=== PATIENT | male | born 1985 | race African-American/Black ===

== ENCOUNTER 2019-10-09 09:06 | Emergency (ER) | payer SELFPAY ==
--- NOTE | 2019-10-09 11:08 | ER ---
Nurse's Notes [facility] Name: Brett Red IV Age: 34 yrs Sex: Male : 1985 Arrival Date: 10/09/2019 Time: 09:10 Bed 19 Private MD: Diagnosis: Sprain of foot-left;Sprain of ankle-left Presentation: 10/08 09:19 Chief complaint: Rolled left ankle while playing basketball 3 days ago, c/o left foot hb and ankle pain 08/24. Coronavirus screen: At this time, the client does not indicate any symptoms associated with coronavirus-19. Ebola Screen: No symptoms or risks identified at this time. Initial Sepsis Screen: Does the patient meet any 2 criteria? No. Patient's initial sepsis screen is negative. Does the patient have a suspected source of infection? No. Patient's initial sepsis screen is negative. Risk Assessment: Do you want to hurt yourself or someone else? Patient reports no desire to harm self or others. Onset of symptoms was October 06, 2019. 09:19 Method Of Arrival: Ambulatory hb 09:19 Acuity: ZELDA 4 hb Historical: - Allergies: 09:21 Sulfa (Sulfonamide Antibiotics); hb - Home Meds: 09:20 None [Active]; hb - PMHx: 09:20 None; hb - PSHx: 09:20 lt knee surgery torn acl; hb - Immunization history:: Adult Immunizations up to date. - Social history:: Smoking status: Patient denies any tobacco usage or history of. Screenin:44 Abuse screen: Denies threats or abuse. Denies injuries from another. Nutritional jr10 screening: No deficits noted. Tuberculosis screening: No symptoms or risk factors identified. Fall Risk None identified. Assessment: 09:42 General: Appears in no apparent distress. Behavior is calm, cooperative, appropriate jr10 for age. Pain: Complains of pain in lateral side of left foot and dorsum of left foot. Cardiovascular: Pulses are palpable in right dorsalis pedis artery and left dorsalis pedis artery. Musculoskeletal: Circulation, motion, and sensation intact. Capillary refill < 3 seconds, Range of motion: intact in all extremities, Swelling present in dorsum of left foot Tenderness is absent. Injury Description: pt states that he rolled his ankle when playing basketball 3 days ago "I just need a work excuse to go back to work, I know it ain't broken". Vital Signs: 09:19 BP 126 / 94; Pulse 63; Resp 16; Temp 97.9; Pulse Ox 100% on R/A; Weight 87.09 kg; hb Height 5 ft. 10 in. (177.80 cm); Pain 7/10; 11:20 BP 135 / 84; Pulse 62; Resp 18; Pulse Ox 98% on R/A; Pain 0/10; jr10 09:19 Body Mass Index 27.55 (87.09 kg, 177.80 cm) hb ED Course: 09:10 Patient arrived in ED. mr 09:20 Triage completed. hb 09:20 Arm band placed on. hb 09:22 Pedro Pablo Burciaga PA is PHCP. cp 09:22 Michael Jacobs MD is Attending Physician. cp 09:33 Lisa Moya, RN is Primary Nurse. jr10 09:44 Patient has correct armband on for positive identification. Call light in reach. jr10 Cardiac monitoring not applicable on this patient. 09:44 No provider procedures requiring assistance completed. Patient did not have IV access jr10 during this emergency room visit. 10:59 XRAY Ankle LEFT 3 view In Process Unspecified. EDMS 10:59 XRAY Foot LEFT 3 View In Process Unspecified. EDMS 11:06 Volodymyr Petersen MD is Referral Physician. cp 11:20 Air stirrup applied to left ankle. jr10 Administered Medications: No medications were administered Outcome: 11:08 Discharge ordered by MD. cp 11:20 Discharged to home ambulatory. jr10 11:20 Condition: good 11:20 Discharge instructions given to patient, Instructed on discharge instructions, follow up and referral plans. Demonstrated understanding of instructions, follow-up care, medications, Prescriptions given X 1. 11:21 Patient left the ED. jr10 Signatures: Dispatcher [employer] EDNJ Tosha Moya mr Pedro Pablo Burciaga PA PA cp Baxter, Heather, TIM RN Lisa Moya, TIM RN jr10 Corrections: (The following items were deleted from the chart) 09:21 09:20 Allergies: No Known Allergies; hb hb
--- NOTE | 2019-10-09 11:09 | EDPHYS ---
Physician Documentation [facility] Name: Brett Red IV Age: 34 yrs Sex: Male : 1985 Arrival Date: 10/09/2019 Time: 09:10 Bed 19 Private MD: ED Physician Michael Jacobs HPI: 10/08 09:26 This 34 yrs old Black Male presents to ER via Ambulatory with complaints of Ankle cp Injury. 09:28 The patient presents with an injury, pain, that is acute. The complaints affect the cp anterior aspect of left ankle and dorsum of left foot. Context: resulted from playing sports, basketball, the patient can fully bear weight, the patient is able to ambulate, with mild difficulty. Onset: The symptoms/episode began/occurred 3 day(s) ago. Associated signs and symptoms: Pertinent negatives calf tenderness, numbness, tingling. Treatment prior to arrival includes: no previous treatment. Historical: - Allergies: 09:21 Sulfa (Sulfonamide Antibiotics); hb - Home Meds: 09:20 None [Active]; hb - PMHx: 09:20 None; hb - PSHx: 09:20 lt knee surgery torn acl; hb - Immunization history:: Adult Immunizations up to date. - Social history:: Smoking status: Patient denies any tobacco usage or history of. ROS: 09:29 MS/extremity: Positive for pain, tenderness, of the dorsum of left foot and anterior cp aspect of left ankle, Negative for decreased range of motion, deformity. 09:29 Neuro: Negative for numbness, tingling. 09:29 All other systems are negative. Exam: 09:30 Constitutional: The patient appears in no acute distress, alert, awake, well developed, cp well nourished. 09:30 Musculoskeletal/extremity: Extremities: grossly normal except: noted in the dorsum of left foot: swelling, tenderness, tenderness to palpation noted lateral malleolus, Perfusion: the extremity is normally perfused throughout, Sensation intact. Achilles tendon intact. Vital Signs: 09:19 BP 126 / 94; Pulse 63; Resp 16; Temp 97.9; Pulse Ox 100% on R/A; Weight 87.09 kg; hb Height 5 ft. 10 in. (177.80 cm); Pain 7/10; 11:20 BP 135 / 84; Pulse 62; Resp 18; Pulse Ox 98% on R/A; Pain 0/10; jr10 09:19 Body Mass Index 27.55 (87.09 kg, 177.80 cm) hb Procedures: 11:15 Splinting: Splint applied to left ankle using Air Cast, applied by nurse. Examined by cp me, post splint application: neurovascular intact, Patient tolerated well. MDM: 09:23 Patient medically screened. cp 11:05 Data reviewed: vital signs, nurses notes, radiologic studies, plain films. Test cp interpretation: by ED physician or midlevel provider: xrays of left ankle negative for fracture and xrays of left foot negative for fracture. 10/08 09:27 Order name: XRAY Ankle LEFT 3 view cp 10/08 09:27 Order name: XRAY Foot LEFT 3 View cp 10/08 11:02 Order name: Splint - Ankle: Aircast; Complete Time: 11:20 cp Administered Medications: No medications were administered Disposition: 11:20 Chart complete. cp 13:55 Co-signature as Attending Physician, Michael Jacobs MD I agree with the assessment and kdr plan of care. Disposition: 10/09/19 11:08 Discharged to Home. Impression: Sprain of foot - left, Sprain of ankle - left. - Condition is Stable. - Discharge Instructions: Ankle Sprain, Foot Sprain, Form - Excuse from Work, School, or Physical Activity. - Prescriptions for Ibuprofen 800 mg Oral Tablet - take 1 tablet by ORAL route every 8 hours As needed take with food; 30 tablet. - Medication Reconciliation Form, Thank You Letter, Antibiotic Education, Prescription Opioid Use form. - Follow up: Volodymyr Petersen MD; When: 1 week; Reason: Recheck today's complaints. - Problem is new. - Symptoms have improved. Signatures: Dispatcher [employer] EDMS Michael Jacobs MD MD [facility] Pedro Pablo Burciaga PA PA cp Amy Machado RN RN Lisa Moya RN RN jr10 Corrections: (The following items were deleted from the chart) 09:20 Allergies: No Known Allergies; hb hb 11:21 11:08 10/09/2019 11:08 Discharged to Home. Impression: Sprain of foot - left; Sprain of jr10 ankle - left. Condition is Stable. Forms are Medication Reconciliation Form, Thank You Letter, Antibiotic Education, Prescription Opioid Use. Follow up: Volodymyr Petersen; When: 1 week; Reason: Recheck today's complaints. Problem is new. Symptoms have improved. cp
--- NOTE | 2019-10-09 11:34 | RAD REPORT ---
EXAM DESCRIPTION: RAD - Foot Left 3 View - 10/09/2019 10:59 am CLINICAL HISTORY: PAIN Ankle twisting injury. COMPARISON: No comparisons FINDINGS: Small capsular avulsion injury suspected off the dorsal aspect of the talus. Adjacent soft tissue swelling evident. No additional acute fracture or dislocation seen.
--- NOTE | 2019-10-09 11:37 | RAD REPORT ---
EXAM DESCRIPTION: RAD - Ankle Left 3 View - 10/09/2019 10:59 am CLINICAL HISTORY: PAIN COMPARISON: No comparisons FINDINGS: Small capsular avulsion injury suspected from the dorsal talus with adjacent soft tissue s welling. Elsewhere, no acute fracture or dislocation seen.
[2019-10-13 23:20] VITALS: TEMP 97.9
[2019-10-13 23:21] VITALS: BP 135/84; O2SAT 98
== END 2019-10-09 11:21 | disposition home or self-care (01) ==
LOC: ER 09:06
DX: S93.602A Unspecified sprain of left foot, initial encounter (principal); S93.402A Sprain of unspecified ligament of left ankle, initial encounter; Y93.67 Activity, basketball; Y92.9 Unspecified place or not applicable; Z88.2 Allergy status to sulfonamides
CPT/HCPCS: 99283